=== PATIENT | female | born 1950 | race Caucasian/White ===

== ENCOUNTER → 2017-05-15 12:05 | Outpatient (CLI) | payer MEDICARE, OTHER ==
--- NOTE | 2017-05-16 14:14 | EC ---
PATIENT:JUAN GOLDEN DATE OF SERVICE: 05/15/17 SEX: F MEDICAL RECORD: [id number] DATE OF : 54 [facility] AGE OF PATIENT: 67 ADMISSION DATE: 05/15/17 REFERRING PHYSICIAN: INTERPRETING PHYSICIAN: HOLLI CARTWRIGHT MD ECHOCARDIOGRAM REPORT ECHO CHARGES 4 ECHO COMPLETE CLINICAL DIAGNOSIS: DYSPNEA/ PULMONARY NODULES , COUGH ECHOCARDIOGRAPHIC MEASUREMENTS (adult normal given) AC root (d.<3.7cm) 3.1 cm LV Septum d (<1.2 cm> 1.2 cm Valve Excursion 2.0 cm LV Septum (systole) 1.3 cm Left Atria (s.<4.0cm> 3.2 cm LVPW d(<1.2cm) 1.2 cm RV (d.<2.3cm) 2.5 cm LVPW (sytole) 1.6 cm LV diastole(<5.6CM) 4.4 cm MV E-F(>70mm/sec) cm LV systole 2.8 cm LVOT Diameter 1.8 cm MV exc.(>10mm) cm Est.ejection fraction (50-75%) % Pericardial Effusion N DOPPLER: LVIT cm/sec A 69.0 cm/sec E 94.0 cm/sec LA cm/sec RVSP 35 mmHg LVOT 108 cm/sec AOP1/2T m/s Asc. Ao 128 cm/sec RVOT 82 cm/sec RA cm/sec PA 91 cm/sec AV Gradient Peak 6.51 mmHg AV Mean 3.24 mmHg AV Area 2.3 cm MV Gradient Peak 4.02 mmHg MV Mean 1.70 mmHg MV Area cm COMMENTS: Clerk Television Production: Wayne LINDA Infrastructure Manager: 2 Dr. Perez TAPE# PACS DATE OF SERVICE: 05/15/2017 FINDINGS: 1. Left ventricular chamber size is within normal limits. Left ventricular systolic function is normal. Overall ejection fraction is estimated at 60%. 2. Left atrium, right atrium, and right ventricle chamber sizes are within normal limits. 3. Valvular structures have normal structure and motion. 4. Doppler interrogation only reveals mild mitral regurgitation and mild tricuspid regurgitation. No other valvular insufficiency or stenosis. ECHOCARDIOGRAM REPORT [id number] JUAN GOLDEN Pulmonary systolic pressure is preserved at 35 mmHg. 5. No evidence of pericardial effusion or left ventricular thrombus. TRANSINT:[id number] Voice Confirmation ID: [id number] DOCUMENT ID: [id number] HOLLI CARTWRIGHT MD at 1414 CC: [id number] DICTATION DATE: 05/16/17 110 TIN CAN FEEDER: 05/16/17 1145 DEP CLI 05/15/17 [place] [id number] [place] [id number]
== END | disposition home or self-care (01) ==
LOC: D.ECHO 05-12 10:30 → D.CT 05-12 11:00 → D.ECHO 12:05
DX: R91.1 Solitary pulmonary nodule (principal)